=== PATIENT | female | born 1955 | race Caucasian/White ===

== ENCOUNTER 2018-08-27 12:57 | Emergency (ER) | payer OTHER ==
[~2018-08-27] VITALS: Ht 154.9 cm; Wt 60.8 kg
[~2018-08-27 12:57] MED LIST: ESCI10TA PO; LIP10 PO; MONT10TA25 PO
[2018-08-27 13:04] VITALS: BP_SYST 132
--- NOTE | 2018-08-27 13:13 | NUR ---
Patient to ER bed 4 to gown for evaluation. Side rails up. Report given to Marbin WALLS.
--- NOTE | 2018-08-27 13:25 | NUR ---
Pt AAOx4 ambulated into ED c/o 11/29 posterior neck pain radiating to back x today. Pt reports history of cervical radiculopathy. Took two advil with no relief. Pt states she has been having intermittent spasming. No deformites noted to site. Slight erythema r/t pt massaging neck. No other injuries/complaints per pt/noted. Will continue to monitor.
[2018-08-27] MEDS ORDERED: KETOROLAC TROMETHAMINE 60 MG/2 ML VIAL IM ONE (13:30)
--- NOTE | 2018-08-27 13:34 | NUR ---
Medication administered. Pt tolerated well. No adverse reactions noted.
[2018-08-27 14:31] VITALS: BP_SYST 124
--- NOTE | 2018-08-27 14:31 | NUR ---
Patient given written and verbal discharge instructions and verbalizes understanding. ER MD discussed with patient the results and treatment provided. Patient in stable condition. ID arm band removed. Rx of motrin, gabapentin given. Patient educated on pain management and to follow up with PMD. Pain Scale 9/10, patient states she does not want anything that can make her drowsy, [employer] Caro is aware. Opportunity for questions provided and answered. Medication side effect fact sheet provided.
== END 2018-08-27 14:31 | disposition home or self-care (01) ==
LOC: SED 12:57
DX: M54.12 Radiculopathy, cervical region (principal); R03.0 Elevated blood-pressure reading, without diagnosis of hypertension; J45.909 Unspecified asthma, uncomplicated; F41.9 Anxiety disorder, unspecified; Z88.5 Allergy status to narcotic agent; Z79.899 Other long term (current) drug therapy
CPT/HCPCS: 96372; 99283; J1885

== ENCOUNTER 2019-10-01 09:58 | Emergency (ER) | payer OTHER ==
[~2019-10-01] VITALS: Ht 154.9 cm; Wt 60.8 kg
[2019-10-01 10:00] VITALS: BP_SYST 142
[2019-10-01] MEDS ORDERED: IPRATROPIUM/ALBUTEROL SULFATE 3 ML AMPUL.NEB (DUONEB) INH ONE (11:15)
[2019-10-01 11:40] VITALS: BP_SYST 142
== END 2019-10-01 11:40 | disposition home or self-care (01) ==
LOC: SED 09:58
DX: S06.0X0A Concussion without loss of consciousness, initial encounter (principal); R42 Dizziness and giddiness; R51 Headache; J45.909 Unspecified asthma, uncomplicated; F41.9 Anxiety disorder, unspecified; Z79.899 Other long term (current) drug therapy; Z88.5 Allergy status to narcotic agent; X58.XXXA Exposure to other specified factors, initial encounter; Y93.89 Activity, other specified; Y92.89 Other specified places as the place of occurrence of the external cause; Y99.8 Other external cause status
CPT/HCPCS: 71046-TC; 93005; 94640; 99283

== ENCOUNTER 2023-01-03 08:23 | Emergency (ER) | payer OTHER ==
[~2023-01-03] VITALS: Ht 165.1 cm; Wt 59.0 kg
[~2023-01-03 08:23] MED LIST changes: +MONT-40 PO; -MONT10TA25 PO
[2023-01-03 08:30] VITALS: BP_SYST 125; PULSE 79; RESP 20; TEMP 98.1; O2SAT 98
[2023-01-03 09:25] LABS: BASOPHILS % (AUTO) 0.2 % (0.0-2.0); EOSINOPHILS # (AUTO) 0.2 K/uL (0.0-0.4); EOSINOPHILS % (AUTO) 1.9 % (0.0-4.0); HEMATOCRIT 36.7 % (36-48); LYMPHOCYTES # (AUTO) 1.7 K/uL (1.0-5.5); LYMPHOCYTES % (AUTO) 20.4 % (20.5-51.5); MEAN CORPUSCULAR HEMOGLOBIN 30 pg (27-31); MEAN CORPUSCULAR HGB CONC 33 % (32-36); MEAN CORPUSCULAR VOLUME 90 fL (79.0-98.0); MONOCYTES # (AUTO) 0.5 K/uL (0.0-1.0); MONOCYTES % (AUTO) 5.7 % (1.7-9.3); NEUTROPHILS # (AUTO) 5.8 K/uL (1.8-7.7); NEUTROPHILS % (AUTO) 71.8 % (40.0-70.0); PLATELET COUNT (AUTO) 421 K/uL (130-430); RED BLOOD CELL COUNT(AUTO) 4.08 MIL/uL (4.2-6.2); RED CELL DISTRIBUTION WIDTH 13.8 % (9.0-15.0); WHITE BLOOD COUNT (AUTO) 8.1 K/uL (4.8-10.8)
[2023-01-03 09:35] LABS: INR 0.9 (0.8-1.2); PROTHROMBIN TIME 9.8 SECS (9.5-12.5)
[2023-01-03 09:40] LABS: ALANINE AMINOTRANSFERASE 34 U/L (12-78); ALBUMIN 3.7 g/dL (3.4-4.8); ANION GAP 8 (5-15); ASPARTATE AMINOTRANSFERASE 20 U/L (10-37); CALCIUM 8.9 mg/dL (8.4-11.0); CARBON DIOXIDE 28 mmol/L (23-29); CHLORIDE 103 mmol/L (98-107); CREATININE 0.67 mg/dL (0.55-1.30); GFR AFRICAN AMERICAN 114 mL/min (>90); GFR NON AFRICAN-AMERICAN 94 mL/min (>90); GLUCOSE 107 mg/dL (74-106); POTASSIUM 3.6 mmol/L (3.5-5.1); SODIUM SERUM 139 mmol/L (136-145); TOTAL BILIRUBIN 0.2 mg/dL (0.0-1.0); TOTAL PROTEIN, SERUM 6.7 g/dL (6.4-8.3); UREA NITROGEN, BLOOD 18 mg/dL (8-21)
[2023-01-03 09:41] LABS: CREATINE KINASE, TOTAL 151 U/L (26-192); LIPASE 63 U/L (16-77)
[2023-01-03 09:58] LABS: BILIRUBIN,URINE NEGATIVE (NEGATIVE); BLOOD, URINE NEGATIVE (NEGATIVE); CLARITY/URINE CLEAR (CLEAR); COLOR,URINE YELLOW (YELLOW); GLUCOSE,URINE NEGATIVE (NEGATIVE); KETONES,URINE NEGATIVE (NEGATIVE); LEUKOCYTE ESTERASE ,URINE NEGATIVE (NEGATIVE); NITRITE, URINE NEGATIVE (NEGATIVE); PH,URINE 8.5 (5.0-8.0); PROTEIN URINE NEGATIVE (NEGATIVE); UROBILINOGEN,URINE 0.2 (0.2-1.0)
[2023-01-03 11:43] VITALS: BP_SYST 125; PULSE 79; RESP 20; TEMP 98.1; O2SAT 98
== END 2023-01-03 11:45 | disposition home or self-care (01) ==
LOC: SED 08:23
DX: M54.14 Radiculopathy, thoracic region (principal); R07.89 Other chest pain; M54.2 Cervicalgia; J45.909 Unspecified asthma, uncomplicated; Z88.5 Allergy status to narcotic agent; Z79.899 Other long term (current) drug therapy
CPT/HCPCS: 36415; 71045; 80053; 81001; 81003; 82550; 83690; 83880; 84484; 85025; 85379; 85610-TC; 85730-TC; 93005; 99285